=== PATIENT | female | born 1955 | race Caucasian/White ===

== ENCOUNTER → 2020-03-09 | Outpatient (CLI) | payer BC ==
--- NOTE | 2020-03-09 13:35 | BD ---
EXAMINATION TYPE: Axial Bone Density DATE OF EXAM: 03/09/2020 COMPARISON: NONE CLINICAL HISTORY: 64 YR OLD FEMALE.....ICD-10 CODE: Z78.0, N95.1 POST MENOPAUSAL Height: 64.5 Weight: 145 FRAX RISK QUESTIONS: NOTHING ADDITIONAL TO NOTE HERE RISK FACTORS HISTORY OF: Surgery to Spine REMOVAL OF L5 DISC...15 YRS AGO NO SURG ON BONE Postmenopausal woman: YES, AT AGE AT 54 YRS OLD, TOMOXIFEN INDUCED Hyperparathyroidism: NO Adrenal Insufficiency: NO MEDICATIONS: Additional Medications: BP MEDS, LEXAPRO, HX OF RADIATION 10 YRS AGO, Additional History: HX OF BREAST CANCER 10 YRS AGO, HYPERTENSION, EXAM MEASUREMENTS: Bone mineral densitometry was performed using the [employer] System. Bone mineral density as measured about the Lumbar spine is: ----- L1-L4(G/cm2): 1.242 T Score Values are as follows: ----- L1: 0.7 ----- L2: 0.5 ----- L3: 0.5 ----- L4: 0.3 ----- L1-L4: 0.5 Bone mineral density IS HER FIRST BONE DENSITY SCAN......BASELINE STUDY Bone mineral density about the R hip (g/cm2): 0.846 Bone mineral density about the L hip (g/cm2): 0.924 T Score values are as follows: -----R Neck: -2.0 -----L Neck: -1.6 -----R Total: -1.3 -----L Total: -0.7 Bone mineral density IS A BASELINE STUDY FRAX%s: THERE IS A 10.3% CHANCE FOR A MAJOR OSTEOPOROTIC FX AND A 1.4% FOR HIP.....PROBABILITY FOR FX IN 10 YRS TIME IMPRESSION: No evidence for osteoporosis or osteopenia. NOTE: T-SCORE=SD OF THE YOUNG ADULT MEAN.
== END | disposition home or self-care (01) ==
LOC: RADBDWWP 07:56
PROVIDERS: ATTEND Family Medicine
DX: Z78.0 Asymptomatic menopausal state (principal)
CPT/HCPCS: 77080

== ENCOUNTER 2023-09-06 07:15 | Inpatient (IN) | payer BC, MEDICARE ==
--- NOTE | 2023-09-06 07:49 | ED ---
General Adult HPI - General Chief complaint: Recheck/Abnormal Lab/Rx Stated complaint: L Facial Numbness Time Seen by Provider: 09/06/23 07:15 Source: patient, RN notes reviewed, old records reviewed Mode of arrival: ambulatory Limitations: no limitations - History of Present Illness Initial comments: This is a 67-year-old female who presents to the emergency department complaining of decreased sensation to the left side of her face and left neck. Patient states she can still feel some light touch or pain but it is not the same at all as it used to be. Patient denies any drooping of the face. Patient denies any coordination problems. Patient is any blurred vision slurred speech or problems ambulating. Patient denies any recent fever chills or cough. Patient states last night when she went to bed at about 10 she had no symptoms. Patient states she woke up at 4 AM with this decree sensation in her face. Patient states she was able to shower and brush her teeth without problem. She says the numbness does not include her forehead. But it does include the lateral aspect of the left side of her neck - Related Data Allergies Allergy/AdvReac Type Severity Reaction Status Date / Time azithromycin [From Zithromax] Allergy Unknown Verified 09/06/23 07:23 amoxicillin [From Augmentin] AdvReac Nausea & Verified 09/06/23 07:23 Vomiting clavulanic acid AdvReac Nausea & Verified 09/06/23 07:23 [From Augmentin] Vomiting codeine AdvReac Hallucinati Verified 09/06/23 07:23 ons Review of Systems ROS Statement: Those systems with pertinent positive or pertinent negative responses have been documented in the HPI. ROS Other: All systems not noted in ROS Statement are negative. Past Medical History Past Medical History: Hypertension History of Any Multi-Drug Resistant Organisms: None Reported Past Surgical History: Back Surgery, Tonsillectomy Additional Past Surgical History / Comment(s): lumpectomy left breast Past Psychological History: No Psychological Hx Reported Smoking Status: Never smoker Past Alcohol Use History: Occasional Past Drug Use History: None Reported General Exam - General Exam Comments Initial Comments: GENERAL: Patient is well-developed and well-nourished. Patient is nontoxic and well- hydrated and is in no acute distress. ENT: Neck is soft and supple. No significant lymphadenopathy is noted. Oropharynx is clear. Moist mucous membranes. Neck has full range of motion without dami citing any pain. EYES: The sclera were anicteric and conjunctiva were pink and moist. Extraocular movements were intact and pupils were equal round and reactive to light. Eyelids were unremarkable. PULMONARY: Unlabored respirations. Good breath sounds bilaterally. No audible rales rhonchi or wheezing was noted. CARDIOVASCULAR: There is a regular rate and rhythm without any murmurs gallops or rubs. ABDOMEN: Soft and nontender with normal bowel sounds. SKIN: Skin is clear with no lesions or rashes and otherwise unremarkable. NEUROLOGIC: Patient is alert and oriented x3. Cranial nerves II through XII are grossly intact. Decreased sensation left side of face not including the forehead and left side of the neck. Normal speech, volume and content. Symmetrical smile. NIH is 1 MUSCULOSKELETAL: Normal extremities with adequate strength and full range of motion. LYMPHATICS: No significant lymphadenopathy is noted PSYCHIATRIC: Normal psychiatric evaluation. Limitations: no limitations Course Vital Signs 09/06/23 09/06/23 09/06/23 07:15 07:50 08:05 Temperature 98.4 F 98.4 F 98.4 F Pulse Rate 54 L 60 59 L Respiratory 18 16 16 Rate Blood Pressure 171/79 161/91 159/89 O2 Sat by Pulse 98 96 96 Oximetry 09/06/23 08:20 Temperature 98.2 F Pulse Rate 57 L Respiratory 14 Rate Blood Pressure 155/75 O2 Sat by Pulse 97 Oximetry Medical Decision Making - Medical Decision Making A code stroke was immediately called after I interviewed the patient. I spoke with Dr. Rose and he was in agreement with how we would proceed Patient's EKG was interpreted by myself. EKG shows a sinus bradycardia at 55 bp m MA interval is 223 QRS is 102 QT interval is 424 QTc is 413. Patient EKG shows no ST segment ovation or depression Was pt. sent in by a medical professional or institution (, PA, BOX TOE STITCHER, urgent care, hospital, or jail...) When possible be specific @ -No Did you speak to anyone other than the patient for history (EMS, parent, family, police, friend...)? What history was obtained from this source @ -No Did you review nursing and triage notes (agree or disagree)? Why? @ -I reviewed and agree with nursing and triage notes Were old charts reviewed (outside hosp., previous admission, EMS record, old EKG, old radiological studies, urgent care reports/EKG's, jail records)? Report findings @ -I reviewed old charts and old lab work on this patient Differential Diagnosis (chest pain, altered mental status, abdominal pain women, abdominal pain men, vaginal bleeding, weakness, fever, dyspnea, syncope, headache, dizziness, GI bleed, back pain, seizure, CVA, palpatations, mental health, musculoskeletal)? @ -Differential CVA Ischemic stroke, hemorrhagic stroke, brain tumor, atypical migraine, Wernicke's encephalopathy, seizure, multiple sclerosis, meningitis, encephalitis, h ypoglycemia, Guillain-Velasquez, electrolytes disturbance, myasthenia gravis.... This is not meant to be an all-inclusive list EKG interpreted by me (3pts min.). @ -As above X-rays interpreted by me (1pt min.). @ -Chest x-ray shows no acute abnormality CT interpreted by me (1pt min.). @ -CT of the brain shows no acute normality. CT angiogram of the head and neck show thyroid nodules U/S interpreted by me (1pt. min.). @ -None done What testing was considered but not performed or refused? (CT, X-rays, U/S, labs)? Why? @ -None What meds were considered but not given or refused? Why? @ -None Did you discuss the management of the patient with other professionals (professionals i.e. , PA, BOX TOE STITCHER, lab, RT, psych nurse, social services counselor, receptionist telephone operator, teacher, chief information security officer, telehealth case manager)? Give summary @ -I spoke with [facility] they agreed to admit the patient Was smoking cessation discussed for >3mins.? @ -No Was critical care preformed (if so, how long)? @ -35 minutes Were there social determinants of health that impacted care today? How? (Homelessness, low income, unemployed, alcoholism, drug addiction, transportation, low edu. Level, literacy, decrease access to med. care, senior care, rehab)? @ -No Was there de-escalation of care discussed even if they declined (Discuss DNR or withdrawal of care, Hospice)? DNR status @ -No What co-morbidities impacted this encounter? (DM, HTN, Smoking, COPD, CAD, Cancer, CVA, ARF, Chemo, Hep., AIDS, mental health diagnosis, sleep apnea, morbid obesity)? @ -None Was patient admitted / discharged? Hospital course, mention meds given and route, prescriptions, significant lab abnormalities, going to OR and other pertinent info. @ -Patient had an NIH of 1 though it did improve slightly she still had decree sensation so I could still consider her an NIH of 1. I spoke with the neuro interventionalists Dr. Rose and he thought the patient should be admitted. I spoke with [facility] they agreed to admit the patient admit the patient I wrote admitting orders I consult the neurology. Patient's thyroid had some nodules on the CT scan so I also ordered TSH T3 and T4. Undiagnosed new problem with uncertain prognosis? @ -No Drug Therapy requiring intensive monitoring for toxicity (Heparin, Nitro, Insulin, Cardizem)? @ -No Were any procedures done? @ -No Diagnosis/symptom? @ -CVA Acute, or Chronic, or Acute on Chronic? @ -Acute Uncomplicated (without systemic symptoms) or Complicated (systemic symptoms)? @ -Default Side effects of treatment? @ -No Exacerbation, Progression, or Severe Exacerbation? @ -No Poses a threat to life or bodily function? How? (Chest pain, [place], GA, pneumonia, PE, COPD, DKA, ARF, appy, cholecystitis, CVA, Diverticulitis, Homicidal, Suicidal, threat to staff... and all critical care pts) @ -Yes this could lead to a massive stroke and morbidity or . Diagnosis/symptom? @ -Thyroid nodules Acute, or Chronic, or Acute on Chronic? @ -Chronic Uncomplicated (without systemic symptoms) or Complicated (systemic symptoms)? @ -Complicated Side effects of treatment? @ -None Exacerbation, Progression, or Severe Exacerbation] @ -No Poses a threat to life or bodily function? @ -No - Lab Data Result diagrams: 09/06/23 07:38 09/06/23 07:38 Lab Results 09/06/23 09/06/23 09/06/23 Range/Units 07:38 07:38 07:38 WBC 8.8 (3.8-10.6) k/uL RBC 4.82 (3.80-5.40) m/uL Hgb 15.2 (11.4-16.0) gm/dL Hct 43.3 (34.0-46.0) % MCV 89.9 (80.0-100.0) fL MCH 31.5 (25.0-35.0) pg MCHC 35.1 (31.0-37.0) g/dL RDW 12.9 (11.5-15.5) % Plt Count 261 (150-450) k/uL MPV 7.8 Neutrophils % 74 % Lymphocytes % 19 % Monocytes % 4 % Eosinophils % 1 % Basophils % 1 % Neutrophils # 6.5 (1.3-7.7) k/uL Lymphocytes # 1.6 (1.0-4.8) k/uL Monocytes # 0.4 (0-1.0) k/uL Eosinophils # 0.1 (0-0.7) k/uL Basophils # 0.1 (0-0.2) k/uL PT 10.9 (10.0-12.5) sec INR 1.0 (<1.2) APTT 25.1 (22.0-30.0) sec Sodium 141 (137-145) mmol/L Potassium 3.8 (3.5-5.1) mmol/L Chloride 104 (98-107) mmol/L Carbon Dioxide 29 (22-30) mmol/L Anion Gap 8 mmol/L BUN 19 H (7-17) mg/dL Creatinine 0.77 (0.52-1.04) mg/dL Est GFR (CKD-EPI)AfAm >90 (>60 ml/min/1.73 sqM) Est GFR (CKD-EPI)NonAf 81 (>60 ml/min/1.73 sqM) Glucose 123 H (74-99) mg/dL POC Glucose (mg/dL) (70-110) mg/dL POC Glu Precision Crop Manager ID Calcium 9.5 (8.4-10.2) mg/dL Total Bilirubin 0.5 (0.2-1.3) mg/dL AST 23 (14-36) U/L ALT 13 (4-34) U/L Alkaline Phosphatase 79 (38-126) U/L Creatine Kinase 81 (30-135) U/L Troponin I (0.000-0.034) ng/mL Total Protein 6.9 (6.3-8.2) g/dL Albumin 4.2 (3.5-5.0) g/dL 09/06/23 09/06/23 Range/Units 07:38 07:58 WBC (3.8-10.6) k/uL RBC (3.80-5.40) m/uL Hgb (11.4-16.0) gm/dL Hct (34.0-46.0) % MCV (80.0-100.0) fL MCH (25.0-35.0) pg MCHC (31.0-37.0) g/dL RDW (11.5-15.5) % Plt Count (150-450) k/uL MPV Neutrophils % % Lymphocytes % % Monocytes % % Eosinophils % % Basophils % % Neutrophils # (1.3-7.7) k/uL Lymphocytes # (1.0-4.8) k/uL Monocytes # (0-1.0) k/uL Eosinophils # (0-0.7) k/uL Basophils # (0-0.2) k/uL PT (10.0-12.5) sec INR (<1.2) APTT (22.0-30.0) sec Sodium (137-145) mmol/L Potassium (3.5-5.1) mmol/L Chloride (98-107) mmol/L Carbon Dioxide (22-30) mmol/L Anion Gap mmol/L BUN (7-17) mg/dL Creatinine (0.52-1.04) mg/dL Est GFR (CKD-EPI)AfAm (>60 ml/min/1.73 sqM) Est GFR (CKD-EPI)NonAf (>60 ml/min/1.73 sqM) Glucose (74-99) mg/dL POC Glucose (mg/dL) 114 H (70-110) mg/dL POC Glu [employer] C[employer] Manager ID Jasen Ybarra Calcium (8.4-10.2) mg/dL Total Bilirubin (0.2-1.3) mg/dL AST (14-36) U/L ALT (4-34) U/L Alkaline Phosphatase (38-126) U/L Creatine Kinase (30-135) U/L Troponin I <0.012 (0.000-0.034) ng/mL Total Protein (6.3-8.2) g/dL Albumin (3.5-5.0) g/dL Critical Care Time Critical Care Time: Yes Total Critical Care Time: 35 Disposition Clinical Impression: CVA (cerebral vascular accident), Thyroid nodule Disposition: ADMITTED IP TO THIS HOSP Referrals: Venecia Salcedo DO [Primary Care Provider] - 1-2 days Time of Disposition: 09:26
[2023-09-06 07:59] LABS: Glucose,Whole Blood 114 mg/dL (70-110)
--- NOTE | 2023-09-06 07:59 | CT ---
EXAMINATION TYPE: CT brain wo con CT DLP: 1091.8 mGycm, Automated exposure control for dose reduction was used. DATE OF EXAM: 09/06/2023 7:56 AM COMPARISON: None. CLINICAL INDICATION:Female, 67 years old with history of Neuro deficit, acute, stroke suspected, stro ke TECHNIQUE: Brain: Axial CT images of the brain were obtained with coronal and sagittal reformats created and rev iewed. Contrast used: None. Oral contrast used: None. FINDINGS: Extra-axial spaces: No abnormal extra-axial fluid collections. Ventricular system: Within normal limits. Cerebral parenchyma: No increased attenuation to suggest acute intraparenchymal hemorrhage. The gra y-white matter interface appears maintained. No significant atrophy. White matter unremarkable by C T. Basilar cisterns are patent. Cerebellum: No acute abnormality. Mass effect: No evidence of mass effect or midline shift. Intracranial vasculature: Mild atherosclerotic calcifications of the larger arteries near the skull b ase. Soft tissues: No acute or concerning abnormality. Visualized orbits: Orbital contents appear grossly intact. Calvarium/osseous structures: No evidence of calvarial fracture. Paranasal sinuses and mastoid air cells: Clear. Material in the external auditory canals likely cerumen. MRI is more sensitive for detecting acute processes such as infarct, and may be considered if clinica lly warranted. IMPRESSION: No acute intracranial CT abnormality.
[2023-09-06 08:15] LABS: Basophils # (A) 0.1 k/uL (0-0.2); Basophils % (A) 1 %; Eosinophils # (A) 0.1 k/uL (0-0.7); Eosinophils % (A) 1 %; HCT 43.3 % (34.0-46.0); HGB 15.2 gm/dL (11.4-16.0); Lymphocytes # (A) 1.6 k/uL (1.0-4.8); Lymphocytes % (A) 19 %; MCH 31.5 pg (25.0-35.0); MCHC 35.1 g/dL (31.0-37.0); MCV 89.9 fL (80.0-100.0); Mean Platelet Volume 7.8; Monocytes # (A) 0.4 k/uL (0-1.0); Monocytes % (A) 4 %; Neutrophils # (A) 6.5 k/uL (1.3-7.7); Neutrophils % (A) 74 %; Platelet Count 261 k/uL (150-450); RBC 4.82 m/uL (3.80-5.40); RDW 12.9 % (11.5-15.5); WBC 8.8 k/uL (3.8-10.6)
[2023-09-06 08:24] LABS: Partial Thromboplastin Time 25.1 sec (22.0-30.0); Prothrombin Time 10.9 sec (10.0-12.5)
[2023-09-06] MEDS: SODIUM CHLORIDE 0.9% 500 ML 500 ML IV STA (08:25)
[2023-09-06 08:39] LABS: ALT 13 U/L (4-34); AST 23 U/L (14-36); African American GFR (CKD) >90 (>60 ml/min/1.73 sqM); Albumin 4.2 g/dL (3.5-5.0); Alkaline Phosphatase 79 U/L (38-126); Anion Gap 8 mmol/L; Blood Urea Nitrogen 19 mg/dL (7-17); Calcium 9.5 mg/dL (8.4-10.2); Carbon Dioxide 29 mmol/L (22-30); Chloride 104 mmol/L (98-107); Creatine Kinase 81 U/L (30-135); Glucose 123 mg/dL (74-99); Non-African American GFR(CKD) 81 (>60 ml/min/1.73 sqM); Potassium 3.8 mmol/L (3.5-5.1); Sodium 141 mmol/L (137-145); Total Bilirubin 0.5 mg/dL (0.2-1.3); Total Protein 6.9 g/dL (6.3-8.2)
--- NOTE | 2023-09-06 09:10 | CT ---
EXAMINATION TYPE: CT angio head neck DATE OF EXAM: 09/06/2023 8:31 AM COMPARISON: Correlation with same day CT head CLINICAL INDICATION:Female, 67 years old with history of Neuro deficit, acute, stroke suspected; PHH, stroke TECHNIQUE: Axially acquired helical CT angiogram of the head and neck was obtained with contrast. Axi al images are supplemented with 3D reconstructions which were post-processed at an independent workst [facility]. NASCET criteria used. Contrast used: 65 mL of Isovue 370 with IV Contrast, Oral contrast used: None. CT DLP: 431 mGycm, Automated exposure control for dose reduction was used. FINDINGS: CTA Neck: A 3 vessel arch is shown. No arch dissection. Branch vessels show no significant stenosis. Origins of the vertebral arteries are patent. The right is slightly dominant. Vertebrals are patent throughout the neck without evidence of dissection, significant stenosis, or pseudoaneurysm. Right common carotid is patent. Patent bifurcation without significant atherosclerotic disease or sathya nosis seen. ECA is patent. ICA is patent to the skull base. Left common carotid is patent. Carotid bifurcation shows no significant disease or stenosis. ICA is p atent to the skull base. ECA is patent. Other: There are several unusual appearing nodular densities throughout the neck, which show partial peripheral calcification. Some examples: On the right adjacent to the superior aspect of the cervical ICA measuring around 9 mm . Deep to the SCM on the right measuring 11.5 mm. A couple of the largest on the left is in the supra clavicular region, 13 mm and 12 mm. Multiple additional soft tissue nodular densities surround the thyroid, some but not all of which idalia ear partially calcified. Multiple small soft tissue densities/lymph nodes in the upper mediastinum as well. The thyroid appears abnormal. Right lobe is grossly unremarkable however the left lobe appears asymme trically enlarged with coarse calcification possible small nodule in the midportion, as well as a lar ximena heterogeneous nodule with some coarse calcifications emanating from the superior pole which measu res up to about 16 mm axially. A subcentimeter nodule may be in the isthmus or immediately adjacent. Visualized lung apices show presumed mild scarring, no consolidation or pneumothorax. Airways appear patent. Mild degenerative changes of the cervical spine. No acute bony abnormality is identified. CTA Head: Proximal intracranial ICAs are patent. Mild calcification in the carotid siphons without significant stenosis seen. Carotid termini are unremarkable. Patent bilateral MCAs and ACAs. Acomm appears unrema rkable. No sizable P-comm's are seen. Intracranial vertebral arteries are patent. Basilar artery is normal in course and caliber and is pat ent. Unremarkable basilar bifurcation without evidence of aneurysm. Visualized proximal motor vehicle dispatcher are rivera nt. Dural venous sinuses appear to enhance normally with no filling defects to suggest thrombosis. Other: Please refer to same-day CT head report.. IMPRESSION: CTA neck: 1. Patent CTA neck. No dissection, hemodynamically significant stenosis, or pseudoaneurysm detected i n the carotid or vertebral arteries in the neck. 2. Abnormal appearance of the thyroid, with indeterminate nodularity most conspicuous in the superior left lobe. Ultrasound and ultrasound-guided biopsy may be considered. 3. Multiple nodular densities in the bilateral neck, surrounding the thyroid, and upper mediastinum, many partially calcified, nonspecific. Metastases such as from the thyroid are considered. Other pote ntial considerations include some kind of granulomatous disease. Excisional biopsy may be contemplate d. CTA head: 1. Patent CTA head. No intracranial large vessel occlusion, significant stenosis, or sizable aneurysm detected in the limits of CTA.
--- NOTE | 2023-09-06 09:32 | XR ---
EXAMINATION TYPE: XR chest 2V DATE OF EXAM: 09/06/2023 7:50 AM CLINICAL INDICATION:Female, 67 years old with history of altered mental status; PHH COMPARISON: None TECHNIQUE: XR chest 2V. Frontal and lateral views of the chest.. FINDINGS: Lines/Tubes/Devices: No indwelling lines are seen. Heart/mediastinum: Heart size is normal. Mediastinum appears normal. Pulmonary vascularity: Not increased, Lungs/Pleura: There is no evidence of pleural effusion, focal consolidation, or pneumothorax. Musculoskeletal: No acute osseous abnormality demonstrated in the limits of the exam. Mild degenerat jevon changes. Other findings: None. IMPRESSION: No acute cardiopulmonary abnormality.
[2023-09-06] MEDS ORDERED: NALOXONE 0.4 MG/ML 1 ML VIAL IV PRN (11:16)
[2023-09-06] MEDS ORDERED: ACETAMINOPHEN TAB 325 MG TAB PO PRN (11:16)
[2023-09-06] MEDS ORDERED: ONDANSETRON 4 MG/2 ML VIAL IVP PRN (11:20)
[2023-09-06] MEDS: ESCITALOPRAM 5 MG TAB PO SCH (12:56)
[2023-09-06] MEDS: ASPIRIN 325 MG TAB PO STA (12:56)
[2023-09-06] MEDS: SODIUM CHLORIDE 0.9% 1,000 ML IV SCH (12:56)
--- NOTE | 2023-09-06 13:03 | US ---
EXAMINATION TYPE: US thyroid st tissue head/neck DATE OF EXAM: 09/06/2023 COMPARISON: CTA neck CLINICAL INDICATION: Female, 67 years old with history of Nodular thyroid densities; Abnormal CT. No t on thyroid meds. GLAND SIZE: Right Lobe: 3.1 x 1.3 x 1.3 cm Overall Parenchyma: homogeneous Left Lobe: 4.4 x 1.9 x 1.8 cm Overall Parenchyma: heterogenous Isthmus Thickness: 0.2 cm NODULES RIGHT: # of nodules measured on right: 0 LEFT: # of nodules measured on left: 1 1. Difficult to visualize 1.9 X 1.5 x 1.7 cm, mid medial, TIRADS Score: 4 TIRADS Category 4: Composition: Solid or almost completely solid (2 points). Echogenicity: Hypoechoic (2 points). Shape: Wider than tall (0 points). Margin: Smooth (0 points). Echogenic foci: None or large comet-tail artifacts (0 points) Recommendation: If >1.5cm: FNA; If >1cm: Follow up at 1,2, 3,5 years ISTHMUS: # of nodules measured in the isthmus: 0 Bilateral neck scanned, with evidence of lymphadenopathy. Largest right lymph node = 1.4 x 1.0 x 1.0 cm. Largest left lymph node = 1.4 x 1.2 x 1.1 cm. IMPRESSION: Left left thyroid gland nodule that meets criteria for fine-needle aspiration if not already performe d.
--- NOTE | 2023-09-06 13:27 | P.HPIM ---
History of Present Illness H&P Date: 09/06/23 Chief Complaint: Left-sided paresthesia * 67-year-old patient with past medical history significant for hypertension, presents to the emergency department with acute onset of paresthesia of left side of the face and neck. Patient states symptom onset was approximately 4 AM on 09/06/2023. Patient denied associated motor weakness or vision impairment or slurred speech or difficulty in ambulation * Workup in ER included CBC showed WBC essentially normal INR within normal guzmán its, serum chemistry essentially negative except for glucose of 123. Initial troponin obtained negative * Patient had a CT brain done which was negative for acute intracranial process * CT angio head and neck was done which was negative for large vessel occlusion however incidental finding of nodular densities in bilateral neck upper thyroid noted * At time of presentation in ED and as correspondence patient was not considered a tPA candidate * Patient admitted with consultation from neurology REVIEW OF SYSTEMS: Left-sided facial paresthesia CONSTITUTIONAL: No fever, no malaise, no fatigue. HEENT: No recent visual problems or hearing problems. Denied any sore throat. CARDIOVASCULAR: No chest pain, orthopnea, PND, no palpitations, no syncope. PULMONARY: No shortness of breath, no cough, no hemoptysis. GASTROINTESTINAL: No diarrhea, no nausea, no vomiting, no abdominal pain. NEUROLOGICAL: No headaches, no weakness, no numbness. HEMATOLOGICAL: Denies any bleeding or petechiae. GENITOURINARY: Denies any burning micturition, frequency, or urgency. MUSCULOSKELETAL/RHEUMATOLOGICAL: Denies any joint pain, swelling, or any muscle pain. ENDOCRINE: Denies any polyuria or polydipsia. PHYSICAL EXAMINATION: GENERAL: The patient is alert and oriented x3, not in any acute distress. Well developed, well nourished. HEENT: Pupils are round and equally reacting to light. EOMI. No scleral icterus. CARDIOVASCULAR: S1 and S2 present. No murmurs, rubs, or gallops. PULMONARY: Chest is clear to auscultation, no wheezing or crackles. ABDOMEN: Soft, nontender, nondistended, normoactive bowel sounds. No palpable organomegaly. MUSCULOSKELETAL: No joint swelling or deformity. EXTREMITIES: No cyanosis, clubbing, or pedal edema. NEUROLOGICAL: Gross neurological examination did not reveal any focal deficits. SKIN: No rashes. Assessment and plan * Left-sided facial paresthesia rule out CVA * History of hypertension * Incidental finding nodular density on thyroiD * Regards to acute neurological symptoms, consultation obtained from neurology continue neurochecks, CT head CT angio head and neck reviewed. Will defer further management including MRI brain to neurology * In regards to hypertension continue patient on metoprolol and lisinopril * Continue patient on aspirin and Plavix, follow-up on lipid panel * In regards to nodular density of thyroid ultrasound soft tissue thyroid ordered TSH T3-T4 levels ordered * CODE STATUS full code Past Medical History Past Medical History: Hypertension History of Any Multi-Drug Resistant Organisms: None Reported Past Surgical History: Back Surgery, Tonsillectomy Additional Past Surgical History / Comment(s): lumpectomy left breast Past Psychological History: No Psychological Hx Reported Smoking Status: Never smoker Past Alcohol Use History: Occasional Past Drug Use History: None Reported Medications and Allergies Home Medications Medication Instructions Recorded Confirmed Type Escitalopram [Lexapro] 5 mg PO DAILY 09/06/23 09/06/23 History Metoprolol Succinate (ER) [Toprol 75 mg PO HS 09/06/23 09/06/23 History XL] hydroCHLOROthiazide [Hydrodiuril] 25 mg PO DAILY 09/06/23 09/06/23 History lisinopriL 40 mg PO HS 09/06/23 09/06/23 History Allergies Allergy/AdvReac Type Severity Reaction Status Date / Time azithromycin [From Zithromax] Allergy Unknown Verified 09/06/23 07:23 amoxicillin [From Augmentin] AdvReac Nausea & Verified 09/06/23 07:23 Vomiting clavulanic acid AdvReac Nausea & Verified 09/06/23 07:23 [From Augmentin] Vomiting codeine AdvReac Hallucinati Verified 09/06/23 07:23 ons Physical Exam Vitals: Vital Signs Temp Pulse Resp BP Pulse Ox 09/06/23 09:35 98.4 F 59 L 16 155/78 98 09/06/23 09:20 98.3 F 59 L 16 153/78 99 09/06/23 09:05 98.4 F 57 L 16 182/89 100 09/06/23 08:50 98.4 F 58 L 16 162/81 99 09/06/23 08:35 98.2 F 57 L 15 157/89 98 09/06/23 08:20 98.2 F 57 L 14 155/75 97 09/06/23 08:05 98.4 F 59 L 16 159/89 96 09/06/23 07:50 98.4 F 60 16 161/91 96 09/06/23 07:15 98.4 F 54 L 18 171/79 98 Intake and Output 09/05/23 09/06/23 09/06/23 22:59 06:59 14:59 Other: Weight 69.853 kg Results CBC & Chem 7: 09/06/23 07:38 09/06/23 07:38 Labs: Abnormal Lab Results - Last 24 Hours (Table) 09/06/23 09/06/23 Range/Units 07:38 07:58 BUN 19 H (7-17) mg/dL Glucose 123 H (74-99) mg/dL POC Glucose (mg/dL) 114 H (70-110) mg/dL
--- NOTE | 2023-09-06 14:53 | P.CNNES ---
History of Present Illness Consult date: 09/06/23 Requesting physician: David Claire Reason for Consult: cva History of Present Illness: This is a 67-year-old woman who presented emergency department because of left facial numbness as well as numbness over the left lateral neck. Patient is accompanied with her was at bedside. Patient stated that she woke up at 4 AM she noticed the left side of the cheek although way involving the left the lower face as well as left lateral neck region the first half she felt was numb. She stated the last normal state was around 10 PM last night. She denies any visual disturbance, focal weakness, difficulty with speech or swallowing. She denies of any history of stroke or TIAs in the past. She does not have any headache. She feels her symptoms is improving. She has history of left breast cancer about 13 years ago status post lumpectomy and had radiation therapy. Patient denies being on antiplatelets. Patient denies tobacco use or illicit drug use. She socially drinks alcohol. Some other workup during his hospital visit consisted of: CT of the head is reported as no acute intracranial CT abnormality. I personally reviewed the CT of the head and I agree with the report. CT of drug failed the neck is reported as patent CT and drug-free neck appeared no dissection, hemodynamically significant stenosis or sooner aneurysm detected in the carotid or vertebral arteries in the neck. Abnormal appearance of the thyroid with indeterminate nodular rate was conspicuous in the superior left lobe. Ultrasound and ultrasound-guided biopsy may be considered. Multiple nodule density in the bilateral neck surrounding the thyroid and upper mediastinal D partially calcified, nonspecific. Metastatic facet such as from the thyroid are considered. Other potential consideration includes some kind of a granulomatous disease. Excisional biopsy may be contemplated. CT angiography of the head is reported as patent CT under of the head. No intracranial large vessel occlusion, significant stenosis or sizable aneurysm detected in the limits of CT angiography. Review of Systems The positive and negative as per HPI. Past Medical History Past Medical History: Hypertension History of Any Multi-Drug Resistant Organisms: None Reported Past Surgical History: Back Surgery, Tonsillectomy Additional Past Surgical History / Comment(s): lumpectomy left breast Past Psychological History: No Psychological Hx Reported Smoking Status: Never smoker Past Alcohol Use History: Occasional Past Drug Use History: None Reported Medications and Allergies Home Medications Medication Instructions Recorded Confirmed Type Escitalopram [Lexapro] 5 mg PO DAILY 09/06/23 09/06/23 History Metoprolol Succinate (ER) [Toprol 75 mg PO HS 09/06/23 09/06/23 History XL] hydroCHLOROthiazide [Hydrodiuril] 25 mg PO DAILY 09/06/23 09/06/23 History lisinopriL 40 mg PO HS 09/06/23 09/06/23 History Allergies Allergy/AdvReac Type Severity Reaction Status Date / Time azithromycin [From Zithromax] Allergy Unknown Verified 09/06/23 07:23 amoxicillin [From Augmentin] AdvReac Nausea & Verified 09/06/23 07:23 Vomiting clavulanic acid AdvReac Nausea & Verified 09/06/23 07:23 [From Augmentin] Vomiting codeine AdvReac Hallucinati Verified 09/06/23 07:23 ons Physical Examination - Vital Signs Vital Signs: Vital Signs Temp Pulse Pulse Resp BP BP BP 09/06/23 12:00 55 L 18 164/70 195/91 09/06/23 09:35 98.4 F 59 L 16 155/78 09/06/23 09:20 98.3 F 59 L 16 153/78 09/06/23 09:05 98.4 F 57 L 16 182/89 09/06/23 08:50 98.4 F 58 L 16 162/81 09/06/23 08:35 98.2 F 57 L 15 157/89 09/06/23 08:20 98.2 F 57 L 14 155/75 09/06/23 08:05 98.4 F 59 L 16 159/89 09/06/23 07:50 98.4 F 60 16 161/91 09/06/23 07:15 98.4 F 54 L 18 171/79 Pulse Ox 09/06/23 12:00 99 09/06/23 09:35 98 09/06/23 09:20 99 09/06/23 09:05 100 09/06/23 08:50 99 09/06/23 08:35 98 09/06/23 08:20 97 09/06/23 08:05 96 09/06/23 07:50 96 09/06/23 07:15 98 Intake and Output 09/05/23 09/06/23 09/06/23 22:59 06:59 14:59 Intake Total 180 Balance 180 Intake: Oral 180 Other: Weight 69.853 kg GENERAL: The patient is lying in bed and is not in acute distress. HENT: Decrease sensation over the upper lateral half to touch. NEUROLOGICAL: Higher mental function: The patient is awake, alert, oriented to self, place and time. Patient is following commands. No aphasia and no neglect. Cranial nerves: The pupils are round, equal and reactive to light and accommodation. Visual morrell are full to confrontation throughout. Extraocular movement is intact no nystagmus is noted. Facial sensation is decreased over V2/V3 region. The facial strength is normal throughout. Hearing is normal bilaterally to hand rub. Tongue is midline and moved [id number] without any difficulty. No dysarthria is noted. Shoulder shrug is normal bilaterally. Motor: The strength is 5 over 5 throughout. Normal tone and bulk. Cerebellum: Normal finger to nose heel to hwang bilaterally. Sensation: Sensation is normal to touch throughout. Reflexes (right/left): 2+ throughout. Plantars are downgoing bilaterally. Results - Laboratory Findings CBC and BMP: 09/06/23 07:38 09/06/23 07:38 Abnormal Lab Findings: Abnormal Labs 09/06/23 09/06/23 07:38 07:58 BUN 19 H Glucose 123 H POC Glucose (mg/dL) 114 H Assessment and Plan Assessment: This is a 67-year-old woman with history of left breast cancer status post lumpectomy status post radiation about 13 years ago who presents with left V2 V3 decrease of facial sensation as well as left upper half of the lateral neck. CT angiography of the neck shows multiple nodular densities in the thyroid and upper mediastinal. Acute numbness over the face neck rule out stroke versus brain metastases Multiple nodular over the thyroid and upper mediastinum on the CT angiography rule out metastasis History of left breast cancer status post lumpectomy and radiation about the 13 years ago Underlying hypertension Plan: I ordered MRI of the brain with and without to rule out stroke versus brain metastases Ordered 2-D echo. Patient was started on the aspirin 325mg daily and Plavix 75 mg daily by the ED team. Prior to this the patient was not any antiplatelet. She was given aspirin 325 once in the ED. I stopped Plavix which was not started yet in case this is a brain metastases or need biopsy for the thyroid. I started the patient on Lipitor 40 mg daily at bedtime for secondary stroke prophylaxis Continue neuro checks Cardiac monitoring PT OT and EMBEDDED SOFTWARE ENGINEER are consulted Primary team ordered head/neck ultrasound I'll defer the multiple nodule and mediastinum workup to the primary. Consider oncology consultation. We'll defer the rest of the medical management to primary team and other specialists For DVT prophylaxis I started the patient on subcu heparin 5000 units every 12 hours The plan discussed with the patient, her was at bedside and primary attending Thank you for the consultation Time with Patient: Greater than 30
[2023-09-06 17:07] LABS: T4, Free (Free Thyroxine) 1.07 ng/dL (0.78-2.19)
[2023-09-06] MEDS: METOPROLOL SUCCINATE (ER) 25 MG TAB.ER.24H PO SCH (21:36)
[2023-09-06] MEDS: lisinopriL 20 MG TAB PO SCH (21:36)
[2023-09-06] MEDS: ATORVASTATIN 40 MG TAB PO SCH (21:36)
[2023-09-07] MEDS: ASPIRIN 325 MG TAB PO SCH (08:33)
[2023-09-07 08:40] LABS: Basophils # (A) 0.1 k/uL (0-0.2); Basophils % (A) 1 %; Eosinophils # (A) 0.1 k/uL (0-0.7); Eosinophils % (A) 1 %; HGB 15.3 gm/dL (11.4-16.0); Lymphocytes # (A) 1.8 k/uL (1.0-4.8); Lymphocytes % (A) 28 %; MCH 30.2 pg (25.0-35.0); MCHC 32.5 g/dL (31.0-37.0); MCV 92.9 fL (80.0-100.0); Mean Platelet Volume 7.6; Monocytes # (A) 0.3 k/uL (0-1.0); Monocytes % (A) 4 %; Neutrophils # (A) 4.1 k/uL (1.3-7.7); Neutrophils % (A) 63 %; Platelet Count 257 k/uL (150-450); RBC 5.06 m/uL (3.80-5.40); RDW 12.6 % (11.5-15.5); WBC 6.5 k/uL (3.8-10.6)
[2023-09-07] MEDS ORDERED: CLOPIDOGREL 75 MG TAB PO SCH (09:00)
[2023-09-07 09:22] LABS: African American GFR (CKD) >90 (>60 ml/min/1.73 sqM); Anion Gap 5 mmol/L; Blood Urea Nitrogen 15 mg/dL (7-17); Calcium 9.5 mg/dL (8.4-10.2); Carbon Dioxide 31 mmol/L (22-30); Chloride 104 mmol/L (98-107); Glucose 104 mg/dL (74-99); Non-African American GFR(CKD) 86 (>60 ml/min/1.73 sqM); Potassium 4.3 mmol/L (3.5-5.1); Sodium 140 mmol/L (137-145)
--- NOTE | 2023-09-07 12:40 | P.PN ---
Subjective Progress Note Date: 09/07/23 * 67-year-old patient with past medical history significant for hypertension, presents to the emergency department with acute onset of paresthesia of left side of the face and neck. Patient states symptom onset was approximately 4 AM on 09/06/2023. Patient denied associated motor weakness or vision impair ment or slurred speech or difficulty in ambulation * Workup in ER included CBC showed WBC essentially normal INR within normal limits, serum chemistry essentially negative except for glucose of 123. I nitial troponin obtained negative * Patient had a CT brain done which was negative for acute intracranial process * CT angio head and neck was done which was negative for large vessel occlusion however incidental finding of nodular densities in bilateral neck upper thyroid noted * At time of presentation in ED and as correspondence patient was not considered a tPA candidate * Patient admitted with consultation from neurology * 09/07/2023; patient seen and evaluated bedside, patient states left-sided f acial paresthesia and left arm paresthesia resolved. MRI brain pending, ultrasound results discussed with patient patient will need FNA biopsy for left thyroid nodule. Patient accompanied by at bedside. Patient was informed she will need to follow-up with primary oncologist and primary care physician postdischarge REVIEW OF SYSTEMS: Left-sided facial paresthesia CONSTITUTIONAL: No fever, no malaise, no fatigue. HEENT: No recent visual problems or hearing problems. Denied any sore throat. CARDIOVASCULAR: No chest pain, orthopnea, PND, no palpitations, no syncope. PULMONARY: No shortness of breath, no cough, no hemoptysis. GASTROINTESTINAL: No diarrhea, no nausea, no vomiting, no abdominal pain. NEUROLOGICAL: No headaches, no weakness, no numbness. HEMATOLOGICAL: Denies any bleeding or petechiae. GENITOURINARY: Denies any burning micturition, frequency, or urgency. MUSCULOSKELETAL/RHEUMATOLOGICAL: Denies any joint pain, swelling, or any muscle pain. ENDOCRINE: Denies any polyuria or polydipsia. PHYSICAL EXAMINATION: GENERAL: The patient is alert and oriented x3, not in any acute distress. Well developed, well nourished. HEENT: Pupils are round and equally reacting to light. EOMI. No scleral icterus. CARDIOVASCULAR: S1 and S2 present. No murmurs, rubs, or gallops. PULMONARY: Chest is clear to auscultation, no wheezing or crackles. ABDOMEN: Soft, nontender, nondistended, normoactive bowel sounds. No palpable organomegaly. MUSCULOSKELETAL: No joint swelling or deformity. EXTREMITIES: No cyanosis, clubbing, or pedal edema. NEUROLOGICAL: Gross neurological examination did not reveal any focal deficits. SKIN: No rashes. Assessment and plan * Left-sided facial paresthesia rule out CVA * History of hypertension * Incidental finding nodular density on thyroid, left thyroid nodule * History of breast cancer in remission * Regards to acute neurological symptoms, consultation obtained from neurology continue neurochecks, CT head CT angio head and neck reviewed. Will defer further management including MRI brain to neurology * In regards to hypertension continue patient on metoprolol and lisinopril * Continue patient on aspirin, continue Lipitor * In regards to nodular density of thyroid ultrasound soft tissue thyroid discussed with patient, will need FNA, TSH moderately elevated T3-T4 within normal limits * CODE STATUS full code Objective - Vital Signs Vital signs: Vital Signs Temp 98.5 F 09/07/23 08:00 Pulse 50 L 09/07/23 08:00 Resp 18 09/07/23 08:00 BP 145/79 09/07/23 08:00 Pulse Ox 96 09/07/23 08:00 FiO2 Intake & Output 09/06/23 09/07/23 09/07/23 18:59 06:59 18:59 Intake Total 360 100 180 Output Total 0 Balance 360 100 180 Weight 69.853 kg Intake: Oral 360 100 180 Output: Urine 0 Other: Voiding Method Toilet Toilet # Voids 2 2 - Labs CBC & Chem 7: 09/07/23 07:17 09/07/23 07:17 Labs: Abnormal Lab Results - Last 24 Hours (Table) 09/06/23 09/07/23 09/07/23 Range/Units 07:30 07:17 07:17 Hct 47.0 H (34.0-46.0) % Carbon Dioxide 31 H (22-30) mmol/L Glucose 104 H (74-99) mg/dL TSH 5.740 H (0.465-4.680) mIU/L
--- NOTE | 2023-09-07 14:43 | P.PN ---
Subjective Progress Note Date: 09/07/23 On follow-up with the patient and she feels her numbness is improving but has not resolved. Denies of any new neurological issues. Objective - Vital Signs Vital signs: Vital Signs Temp 98.0 F 09/07/23 12:00 Pulse 48 L 09/07/23 12:00 Resp 18 09/07/23 12:00 BP 127/73 09/07/23 12:00 Pulse Ox 97 09/07/23 12:00 FiO2 Intake & Output 09/06/23 09/07/23 09/07/23 18:59 06:59 18:59 Intake Total 360 100 180 Output Total 0 Balance 360 100 180 Weight 69.853 kg Intake: Oral 360 100 180 Output: Urine 0 Other: Voiding Method Toilet Toilet # Voids 2 1 - Exam GENERAL: The patient is lying in bed and is not in acute distress. HENT: Decrease sensation over the upper lateral half to touch. NEUROLOGICAL: Higher mental function: The patient is awake, alert, oriented to self, place and time. Patient is following commands. No aphasia and no neglect. Cranial nerves: The pupils are round, equal and reactive to light and acco mmodation. Visual morrell are full to confrontation throughout. Extraocular movement is intact no nystagmus is noted. Facial sensation is decreased over V2/V3 region. The facial strength is normal throughout. Hearing is normal bilaterally to hand rub. Tongue is midline and moved [id number] without any difficulty. No dysarthria is noted. Shoulder shrug is normal bilaterally. Motor: The strength is 5 over 5 throughout. Normal tone and bulk. Cerebellum: Normal finger to nose heel to hwang bilaterally. Sensation: Sensation is normal to touch throughout. Reflexes (right/left): 2+ throughout. Plantars are downgoing bilaterally. Some other workup during his hospital visit consisted of: TSH is 5.7403 T4 is 1.07 and the free T3 is 4.6 CT of the head is reported as no acute intracranial CT abnormality. I personally reviewed the CT of the head and I agree with the report. CT of drug failed the neck is reported as patent CT and drug-free neck appeared no dissection, hemodynamically significant stenosis or sooner aneurysm detected in the carotid or vertebral arteries in the neck. Abnormal appearance of the thyroid with indeterminate nodular rate was conspicuous in the superior left lobe. Ultrasound and ultrasound-guided biopsy may be considered. Multiple nodule density in the bilateral neck surrounding the thyroid and upper mediastinal D partially calcified, nonspecific. Metastatic facet such as from the thyroid are considered. Other potential consideration includes some kind of a granulomatous disease. Excisional biopsy may be contemplated. CT angiography of the head is reported as patent CT under of the head. No intracranial large vessel occlusion, significant stenosis or sizable aneurysm detected in the limits of CT angiography. Thyroid ultrasound is reported as left thyroid gland nodule that meets criteria for fine needle aspiration if not already performed. - Labs CBC & Chem 7: 09/07/23 07:17 09/07/23 07:17 Labs: Abnormal Lab Results - Last 24 Hours (Table) 09/06/23 09/07/23 09/07/23 Range/Units 07:30 07:17 07:17 Hct 47.0 H (34.0-46.0) % Carbon Dioxide 31 H (22-30) mmol/L Glucose 104 H (74-99) mg/dL TSH 5.740 H (0.465-4.680) mIU/L Assessment and Plan Assessment: This is a 67-year-old woman with history of left breast cancer status post lumpectomy status post radiation about 13 years ago who presents with left V2 V3 decrease of facial sensation as well as left upper half of the lateral neck. CT angiography of the neck shows multiple nodular densities in the thyroid and upper mediastinal. Acute numbness over the face neck rule out stroke versus brain metastases Multiple nodular over the thyroid and upper mediastinum on the CT angiography rule out metastasis. Thyroid ultrasound reveals left thyroid nodule. History of left breast cancer status post lumpectomy and radiation about the 13 years ago Underlying hypertension Plan: pending MRI of the brain with and without to rule out stroke versus brain metastis. Pending 2-D echo. Patient was started on the aspirin 325mg daily and Plavix 75 mg daily by the ED team. Prior to this the patient was not any antiplatelet. She was given aspirin 325 once in the ED. I stopped Plavix which was not started yet in case this is a brain metastases or need biopsy for the thyroid. I started the patient on Lipitor 40 mg daily at bedtime for secondary stroke prophylaxis Continue neuro checks Cardiac monitoring PT OT and STORY EDITOR are consulted Primary team ordered head/neck ultrasound I'll defer the multiple nodule and mediastinum workup to the primary. Consider oncology consultation. We'll defer the rest of the medical management to primary team and other specialists For DVT prophylaxis On subcu heparin 5000 units every 12 hours The plan discussed with the patient, her who is at bedside. Dr. Schmidt will resume neurology service tomorrow A.M. Time with Patient: Less than 30
[2023-09-08 07:43] LABS: Chol/HDL Ratio 4.71 Ratio; LDL Cholesterol,Calculated 149.6 mg/dL (0.0-131.0)
--- NOTE | 2023-09-08 08:23 | CA ---
Transthoracic Echo Report Name: Shannon Cutler Age: 67 Gender: F : 1955 Exam Date: 09/06/2023 17:06 Exam Location: [facility] Ht (in): 66 Wt (lb): 154 Ordering Physician: Calderon Scherer MD Attending/Referring Phys: Director [employer] RDCS Procedure CPT: Indications: stroke Cardiac Hx: Technical Quality: Fair Contrast 1: Agitated Saline Total Dose (mL): 10 Contrast 2: Total Dose (mL): MEASUREMENTS (Male / Female) Normal Values 2D ECHO LV Diastolic Diameter PLAX 3.6 cm 4.2 - 5.9 / 3.9 - 5.3 cm LV Systolic Diameter PLAX 2.1 cm IVS Diastolic Thickness 1.3 cm 0.6 - 1.0 / 0.6 - 0.9 cm LVPW Diastolic Thickness 1.3 cm 0.6 - 1.0 / 0.6 - 0.9 cm LV Relative Wall Thickness 0.7 RV Internal Dim ED PLAX 4.0 cm LA Volume 61.0 cm??? 18 - 58 / 22 - 52 cm??? LA Volume Index 33.6 cm???/m??? 16 - 28 cm???/m??? M-MODE Aortic Root Diameter MM 2.6 cm LA Systolic Diameter MM 3.5 cm LA Ao Ratio MM 1.3 AV Cusp Separation MM 1.7 cm DOPPLER AV Peak Velocity 157.6 cm/s AV Peak Gradient 9.9 mmHg AV Mean Velocity 103.8 cm/s AV Mean Gradient 4.8 mmHg AV Velocity Time Integral 34.4 cm LVOT Peak Velocity 130.4 cm/s LVOT Peak Gradient 6.8 mmHg LVOT Velocity Time Integral 30.1 cm MV Area PHT 3.4 cm??? Mitral E Point Velocity 113.6 cm/s Mitral A Point Velocity 74.6 cm/s Mitral E to A Ratio 1.5 MV Deceleration Time 225.1 ms MV E' Velocity 7.0 cm/s Mitral E to MV E' Ratio 16.2 TR Peak Velocity 171.2 cm/s TR Peak Gradient 11.7 mmHg Right Ventricular Systolic Press 16.7 mmHg FINDINGS Left Ventricle Mildly increased left ventricular wall thickness. Left ventricular cavity size normal. Normal left ventricular systolic function with no obvious regional wall motion abnormalities. Left ventricular ejection fraction is estimated at 55-60 %. Right Ventricle Right ventricular dilatation. Normal right ventricular global systolic function. Right ventricular systolic pressure within normal limits. Right Atrium Normal right atrial size. Negative agitated saline bubble study for right to left shunt. Left Atrium Mildly increased left atrial volume. Mildly increased left atrial area. Mitral Valve Structurally normal mitral valve. Mild mitral regurgitation. Aortic Valve Trileaflet aortic valve. No aortic valve stenosis or regurgitation. Tricuspid Valve Structurally normal tricuspid valve. Mild tricuspid regurgitation. Pulmonic Valve Structurally normal pulmonic valve. Pericardium No pericardial effusion. Aorta Normal size aortic root and proximal ascending aorta. CONCLUSIONS 1. Normal left ventricle size and systolic function 2. Mild mitral and tricuspid regurgitation 3. No evidence of shunting by contrast bubble study and color flow Doppler Previewed by: Dr. Beryl Chiu MD (Electronically Signed) Final Date: 07 September 2023 07:45
[2023-09-08 10:35] VITALS: RESP 18
[2023-09-08 14:02] VITALS: BP 153/78; PULSE 74; TEMP 98.1
--- NOTE | 2023-09-08 14:50 | MR ---
EXAMINATION TYPE: MR brain wo/w con DATE OF EXAM: 09/08/2023 1:50 PM CLINICAL INDICATION:Female, 67 years old with history of left facial numbness. cva. r/o brain mets, Left facial numbness, CVA, thyroid nodule, hx breast ca, R/O brain mets. COMPARISON: 09/06/2023. TECHNIQUE: Multi planar, multi sequence imaging was performed through the brain including: T1, T2, In version recovery, susceptibility weighted imaging and gradient echo imaging and Diffusion weighted im aging. The patient was then given intravenous contrast and multi planar, T1 fat-saturation images wer e obtained. IV Contrast: 7 cc Gadavist FINDINGS: The mcdonnell-white junctions, ventricular system, basal cisterns appear unremarkable. Diffusion-weighted imaging shows no evidence of restricted diffusion to suggest acute/subacute infarct. Intracranial ar terial flow voids are maintained. Midline structures show no abnormality. Scattered foci of high T2 s ignal intensity are seen within the periventricular white matter. The susceptibility weighted images do not reveal any evidence for micro-hemorrhage. After administration of gadolinium, no abnormal enha ncement is seen. The bone marrow signal is within normal limits. Paranasal sinuses and mastoid air cells: No significant paranasal sinus disease. Visualized orbits: Orbital contents are intact. IMPRESSION: 1. No evidence for metastatic disease. No evidence of intracranial mass, acute/subacute infarct, or a bnormal enhancement. 2. Nonspecific white matter changes, likely related to small vessel ischemic disease.
--- NOTE | 2023-09-08 17:41 | P.PN ---
Subjective Progress Note Date: 09/08/23 Patient was initially seen by Dr. Calderon Scherer. Please refer to his note for details. Patient is a 67-year-old female with left facial and neck numbness. Patient has thyroid nodule. Has history of left breast cancer and is in remission. Patient states her numbness of the left cheek region has improved. She only has tiny spot of numbness just above the left jaw. No other symptoms. No headache. CT of the head is reported as no acute intracranial CT abnormality. I personally reviewed the CT of the head and I agree with the report. CT of drug failed the neck is reported as patent CT and drug-free neck appeared no dissection, hemodynamically significant stenosis or sooner aneurysm detected in the carotid or vertebral arteries in the neck. Abnormal appearance of the thyroid with indeterminate nodular rate was conspicuous in the superior left lobe. Ultrasound and ultrasound-guided biopsy may be considered. Multiple nodule density in the bilateral neck surrounding the thyroid and upper mediastinal D partially calcified, nonspecific. Metastatic facet such as from the thyroid are considered. Other potential consideration includes some kind of a granulomatous disease. Excisional biopsy may be contemplated. CT angiography of the head is reported as patent CT under of the head. No intracranial large vessel occlusion, significant stenosis or sizable aneurysm detected in the limits of CT angiography. Objective - Vital Signs Vital signs: Vital Signs Temp 98.1 F 09/08/23 12:00 Pulse 74 09/08/23 14:00 Resp 18 09/08/23 14:00 BP 153/78 09/08/23 12:00 Pulse Ox 98 09/08/23 12:00 FiO2 Intake & Output 09/07/23 09/08/23 09/08/23 18:59 06:59 18:59 Intake Total 360 200 360 Balance 360 200 360 Intake: Oral 360 200 360 Other: Voiding Method Toilet Toilet Toilet # Voids 1 1 1 - Exam Patient's mental status, speech and language functions are normal. Cranial nerves are normal. Visual morrell are full. Face is symmetric and tongue protrudes to the midline. Pupils are equal, round and reacting. On muscle strength testing there is no pronator drift. Sensory to touch is equal. No ataxia. - Labs CBC & Chem 7: 09/07/23 07:17 09/07/23 07:17 Labs: Abnormal Lab Results - Last 24 Hours (Table) 09/07/23 Range/Units 07:17 Cholesterol 225.00 H (0.00-200.00) mg/dL LDL Cholesterol, Calc 149.6 H (0.0-131.0) mg/dL Assessment and Plan Assessment: This is a 67-year-old woman with history of left breast cancer status post lumpectomy status post radiation about 13 years ago who presents with left V2 V3 decrease of facial sensation as well as left upper half of the lateral neck. CT angiography of the neck shows multiple nodular densities in the thyroid and upper mediastinal. Acute numbness over the face neck rule out stroke versus brain metastases Multiple nodular over the thyroid and upper mediastinum on the CT angiography rule out metastasis. Thyroid ultrasound reveals left thyroid nodule. History of left breast cancer status post lumpectomy and radiation about the 13 years ago Underlying hypertension Hyperlipidemia, newly diagnosed. Plan: MRI of the brain with and without contrast revealed no metastasis, no mass, no CVA. I personally reviewed MRI, agree with the findings. 2-D echo revealed normal left ventricular size. LVEF 55 to 60%. Negative bubble study for any PFO. No embolic source.. Patient switched from aspirin 325 down to 81 mg daily. Lipid panel with cholesterol 225, LDL 149, HDL 47, triglycerides 138. Dr. Scherer started the patient on Lipitor 40 mg daily at bedtime for secondary stroke prophylaxis. I also agree. Continue neuro checks Cardiac monitoring PT OT and L[employer] H[employer] INSPECTOR are consulted Primary team ordered head/neck ultrasound I'll defer the multiple nodule and mediastinum workup to the primary. Consider oncology consultation. We'll defer the rest of the medical management to primary team and other specialists For DVT prophylaxis On subcu heparin 5000 units every 12 hours Neurologically clear for discharge. Discussed with the nursing staff in detail.
[2023-09-09] MEDS ORDERED: ASPIRIN 81 MG PO SCH (09:00)
== END 2023-09-08 18:49 | disposition home or self-care (01) | DRG 93 ==
LOC: EC 07:15 → 3SCARD 09:26
PROVIDERS: ADMIT Internal Medicine; ATTEND Internal Medicine
DX: R20.0 Anesthesia of skin (principal); E78.5 Hyperlipidemia, unspecified; I08.1 Rheumatic disorders of both mitral and tricuspid valves; E04.2 Nontoxic multinodular goiter; I10 Essential (primary) hypertension; Z79.899 Other long term (current) drug therapy; Z85.3 Personal history of malignant neoplasm of breast; Z92.3 Personal history of irradiation; Z88.1 Allergy status to other antibiotic agents; Z88.5 Allergy status to narcotic agent; Z88.8 Allergy status to other drugs, medicaments and biological substances
CPT/HCPCS: 36415; 70450; 70496; 70498; 70553; 71046; 76536; 80048; 80053; 80061; 82550; 84439; 84443; 84481; 84484; 85025; 85610; 85730; 93005; 93306; 96360; 99291

== ENCOUNTER 2023-10-14 13:01 | Day surgery (SDC) | payer MEDICARE ==
[2023-10-14 13:30] VITALS: TEMP 98.2
[2023-10-14 15:44] VITALS: BP 150/74; PULSE 79; RESP 18
--- NOTE | 2023-10-14 20:26 | US ---
EXAMINATION TYPE: US FNA thyroid first lesion DATE OF EXAM: 10/14/2023 2:49 PM REASON FOR EXAM: 68-year-old female E04.1 NONTOXIC SINGLE THYROID NODULE RADIOLOGIST: Dr. Bryant Coley PROCEDURE: An initial scanning demonstrated the 1.7 cm solid TR 3 nodule in the left lobe. This is targeted for biopsy. This is targeted for FNA. The procedure, along with the risks and complications were discussed with the patient. Patient agreed to proceed with the procedure. A consent was signed and placed in patient's chart. Maximum sterile barrier technique was utilized. Timeout was performed by myself. The left side of the neck was sterilely prepped and draped in the usual fashion. 3 milliliters of 1% Lidocaine were utili zed to anesthetize the superficial and deep soft tissues at each nodule in turn. Following that, under ultrasound guidance, 5 passes were made into each nodule with 5 cc syringe suct ion. After each pass, the sample was placed on a slide and then sent for pathology. Upon conclusion, hemostasis was achieved, and patient was discharged home in satisfactory condition. IMPRESSION: Successful FNA of the 1.7 cm TR3 nodule in the left lobe. Pathology pending.
== END 2023-10-14 15:10 | disposition home or self-care (01) ==
LOC: RADPROMAIN 13:01
PROVIDERS: ATTEND Family Medicine
DX: E04.1 Nontoxic single thyroid nodule (principal); Z85.3 Personal history of malignant neoplasm of breast
CPT/HCPCS: 10005; 88173; 88305